=== PATIENT | male | born 1950 | race Caucasian/White ===

== ENCOUNTER 2018-05-02 09:49 | Emergency (ER) | payer MEDICAID, SELFPAY ==
[2018-05-02] VITALS (9 sets, daily range): BP systolic 81–103; BP diastolic 53–69; PULSE 90–102; RESP 16–24; TEMP 36.6–36.7; O2SAT 90–94; BMI 43.6
--- NOTE | 2018-05-02 09:53 | RAD_ITS ---
STUDY: X-RAY CHEST REASON FOR EXAM: Male, 68 years old. Weakness and dyspnea. TECHNIQUE: AP and lateral views of the chest. COMPARISON: None. FINDINGS: EKG electrodes are seen. There is evidence of vascular congestion and CHF. Blunting of both costophrenic angles posteriorly. There is moderate cardiac enlargement. Normal mediastinum and kristin. Normal visualized pulmonary arteries. There is atherosclerotic tortuosity of the aortic arch and descending thoracic aorta. There are diffuse degenerative changes of the visualized thoracic spine. Normal visualized ribs, clavicles, and shoulders. There is no demonstrated abnormality of the visualized soft tissue structures of the upper abdomen. RAD/Chest PA and Lateral IMPRESSION: Cardiomegaly and CHF. Electronically Signed: Chad Humphrey MD at 11:12 EST Tel [phone], Service support ,
[2018-05-02 10:10] LABS: Absolute Neutrophil Count 11.4 X10^3/uL (2.0-7.7); Basophil# 0.02 X10^3/uL; Basophil% 0.1 % (0-1); Differential Indicated SCAN CRITERIA MET; Eosinophil# 0.04 X10^3/uL; Eosinophils% 0.3 % (0-5); Hematocrit 31.8 % (40-54); Hemoglobin 9.2 g/dl (13.0-16.5); Mean Corp Hgb Conc 28.9 g/gl (32-36); Mean Corpuscular Hgb 29.1 pg (27.0-32.0); Mean Corpuscular Volume 100.6 fL (80-94); Mean Platelet Vol. 10.5 fl (6.2-12.0); Monocyte# 1.44 X10^3/uL; Monocyte% 10.3 % (0-10); Neutrophil % 81.4 % (47-70); POSITIVE COUNT YES; POSITIVE DIFFERENTIAL NO; POSITIVE MORPHOLOGY YES; Platelet Count 216 K/mm3 (150-450); RBC Distribution Width CV 22.8 % (11.6-14.6); RBC Distribution Width SD 83.9 fl (35.1-43.9); Red Blood Count 3.16 M/mm3 (4.6-6.2)
[2018-05-02 10:11] LABS: NRBC Flagged by Analyzer 0.7 % (0-5)
[2018-05-02 10:24] LABS: Anion Gap 5 (5-15); BUN 13 mg/dL (7-18); BUN/Creat Ratio 11.1 RATIO (10-20); Calcium,Total 8.4 mg/dL (8.5-10.1); Chloride 105 mmol/L (98-107); Creatinine, Serum 1.17 mg/dL (0.70-1.30); EST Glomerular Filtration Rate 66 mL/min (>60); Est Glom Filt Rate - Afr Amer 80 mL/min (>60); Glucose 183 mg/dL (74-106); Potassium 4.3 mmol/L (3.5-5.1); Sodium Level 142 mmol/L (136-145)
[2018-05-02 10:38] LABS: Platelet Estimate ADEQUATE (ADEQ)
[2018-05-02 10:39] LABS: Anisocytosis 1+; Differential Comment SCANNED; Hypochromasia 2+; Macrocytosis 1+; Polychromasia 1+
[2018-05-02] MEDS: Furosemide 20 MG/2 ML VIAL IV (10:58)
--- NOTE | 2018-05-02 11:13 | ED.VISSUMM ---
- ER Visit Summary Date of Service: 05/02/18 Chief Complaint: Low pulse ox History of Present Illness: The patient is a 68 M who is a poor informant and has been probated by the court because he is not capable of making his own decisions. [facility]work [facility] patient. After reviewing paperwork I was able to determine the patient is DNR Comfort [facility] only. This was not discussed with the patient since he has been probated by the court and has been deemed not to have the capacity to make a medical decision. His complaint is cough. He is not capable of elaborating on anything or tell me specifically quality, quantity duration etc. Physical Examination: Vital signs noted. Blood pressure 102/57 heart rate 102 with a respiratory of 20 and saturation on 3 L of 94%. His pulse ox may have been inaccurate since he has black fingernail [place] islander. Patient has abnormal respiratory sounds which are upper airway. There is no swelling of his lips, tongue posterior pharynx or neck. Pupils are equal round reactive paradoxic muscle intact. Sclera is anicteric. Neck is supple. Heart is irregular and rapid. There is transmission of upper airway sounds to the lower lung dave on inspiration. There is no wheezing on expiration. Abdomen is prominent soft nontender. There is mild edema both legs. He is alert, but he is not oriented. He moves all extremities. He withdraws to Babinski testing. DTRs are symmetric. Test Results: EKG was not obtained since he is DNR Comfort Care only. Chest x-ray reveals a rotated film with probable cardiomegaly and congestive heart failure. White count is slightly elevated 14.0 thousand with 81% segs and no bands and 5% lymphs. Hemoglobin is 9.2. Glucose is slightly elevated. Emergency Department Course and Treatment: To evaluate patient's hypoxia a chest x-ray and blood work was obtained. An EKG troponin such was not obtained since he is DNR Comfort Care only. Treatment Plan: He received 20 mg of Lasix IV push. He was discharged with prescription for Lasix and return to nursing facility since he has a signed valid DNR Comfort Care order. Disposition: Return to nursing facility with prescription for Lasix Impression: 1. Congestive heart failure 2. Chronic respiratory failure with hypercapnia and hypoxia 3. Unspecified anemia 4. Hyperglycemia 5. Renal insufficiency This note was generated with Anewsation software. It may contain incorrect words, spelling, and punctuation that were not noted in review of the chart prior to signing ED Disposition - Plan for ED Patient: Disposition: Home or Assisted Living Chief Complaint: Shortness of Breath Instructions: ED CHF General Prescriptions: Furosemide [Lasix] 20 mg PO DAILY #30 tab Referrals: Marc Becerra [Primary Care Provider] - 5-7 Days
--- NOTE | 2018-05-02 11:19 | ED.DCSUM_ITS ---
- ER Visit Summary Date of Service: 05/02/18 Chief Complaint: Low pulse ox History of Present Illness: The patient is a 68 M who is a poor informant and has been probated by the court because he is not capable of making his own decisions. Paperwork from [facility] accompany patient. After reviewing florencia jimenez I was able to determine the patient is DNR Comfort Care only. This was not discussed with the patient since he has been probated by the court and has been deemed not to have the capacity to make a medical decision. His complaint is cough. He is not capable of elaborating on anything or tell me specifically quality, quantity duration etc. Physical Examination: Vital signs noted. Blood pressure 102/57 heart rate 102 with a respiratory of 20 and saturation on 3 L of 94%. His pulse ox may have been inaccurate since he has black fingernail sao tomean. Patient has abnormal respiratory sounds which are upper airway. There is no swelling of his lips, tongue posterior pharynx or neck. Pupils are equal round reactive paradoxic muscle intact. Sclera is anicteric. Neck is supple. Heart is irregular and rapid. There is transmission of upper airway sounds to the lower lung dave on inspiration. There is no wheezing on expiration. Abdomen is prominent soft nontender. There is mild edema both legs. He is alert, but he is not oriented. He moves all extremities. He withdraws to Babinski testing. DTRs are symmetric. Test Results: EKG was not obtained since he is DNR Comfort Care only. Chest x- ray reveals a rotated film with probable cardiomegaly and congestive heart failure. White count is slightly elevated 14.0 thousand with 81% segs and no bands and 5% lymphs. Hemoglobin is 9.2. Glucose is slightly elevated. Emergency Department Course and Treatment: To evaluate patient's hypoxia a chest x-ray and blood work was obtained. An EKG troponin such was not obtained since he is DNR Comfort Care only. Treatment Plan: He received 20 mg of Lasix IV push. He was discharged with prescription for Lasix and return to nursing facility since he has a signed valid DNR Comfort Care order. Disposition: Return to nursing facility with prescription for Lasix Impression: 1. Congestive heart failure 2. Chronic respiratory failure with hypercapnia and hypoxia 3. Unspecified anemia 4. Hyperglycemia 5. Renal insufficiency This note was generated with Flixel Photosation software. It may contain incorrect words, spelling, and punctuation that were not noted in review of the chart prior to signing ED Disposition - Plan for ED Patient: Disposition: Home or Assisted Living Chief Complaint: Shortness of Breath Instructions: ED CHF General Prescriptions: Furosemide [Lasix] 20 mg PO DAILY #30 tab Referrals: Marc Becerra [Primary Care Provider] - 5-7 Days
--- NOTE | 2018-05-02 11:27 | NURSING ---
CALLED ARJ BURROUG[facility], COMING FROM [place]
[2018-05-03 10:37] LABS: Pathologist Review Reviewed
--- OUTSIDE RECORDS SUMMARY | 2018-07-04 20:59 | XMS RPT_ITS ---
:1950 Author Organization [facility] Care Team Providers Name [facility], [facility] Attending Unavailable Dg Stewart Attending Unavailable Marc Becerra Primary Care Unavailable Neptali Becerra Attending Unavailable PROBLEMS PROBLEMS No Problem Records FoundPROCEDURES PROCEDURES No Procedure Records FoundRESULTS RESULTS EMERGENCY DEPARTMENT Observed: 05/02/2018 Status: F Source: [place] SUMMARY 11:20 AM [facility] REPOSITORY [facility] Medical Records Department [address] [place] [address] Emergency Department Summary 05/02/18 1113 MR#: [id number] Acct: [id number] Name: DEANDRA BONNER Rep #: [id number] : 1950 68 From: Dg Stewart MD PCP: Marc Becerra Status: REG ER - ER Visit Summary Date of Service: 05/02/18 Chief Complaint: Low pulse ox History of Present Illness: The patient is a 68 M who is a poor informant and has been probated by the court because he is not capable of making his own decisions. Paperwork from [facility] accompany patient. After reviewing paperwork I was able to determine the patient is DNR Comfort Care only. This was not discussed with the patient since he has been probated by the court and has been deemed not to have the capacity to make a medical decision. His complaint is cough. He is not capable of elaborating on anything or tell me specifically quality, quantity duration etc. Physical Examination: Vital signs noted. Blood pressure 102/57 heart rate 102 with a respiratory of 20 and saturation on 3 L of 94%. His pulse ox may have been inaccurate since he has black fingernail greenlandic. Patient has abnormal respiratory sounds which are upper airway. There is no swelling of his lips, tongue posterior pharynx or neck. Pupils are equal round reactive paradoxic muscle intact. Sclera is anicteric. Neck is supple. Heart is irregular and rapid. There is transmission of upper airway sounds to the lower lung dave on inspiration. There is no wheezing on expiration. Abdomen is prominent soft nontender. There is mild edema both legs. He is alert, but he is not oriented. He moves all extremities. He withdraws to Babinski testing. DTRs are symmetric. Test Results: EKG was not obtained since he is DNR Comfort Care only. Chest x-ray reveals a rotated film with probable cardiomegaly and congestive heart failure. White count is slightly elevated 14.0 thousand with 81% segs and no bands and 5% lymphs. Hemoglobin is 9.2. Glucose is slightly elevated. Emergency Department Course and Treatment: To evaluate patient's hypoxia a chest x-ray and blood work was obtained. An EKG troponin such was not obtained since he is DNR Comfort Care only. Treatment Plan: He received 20 mg of Lasix IV push. He was discharged with prescription for Lasix and return to nursing facility since he has a signed valid DNR Comfort Care order. Disposition: Return to nursing facility with prescription for Lasix Impression: 1. Congestive heart failure 2. Chronic respiratory failure with hypercapnia and hypoxia 3. Unspecified anemia 4. Hyperglycemia 5. Renal insufficiency This note was generated with Pyrolia dictation software. It may contain incorrect words, spelling, and punctuation that were not noted in review of the chart prior to signing ED Disposition - Plan for ED Patient: Disposition: Home or Assisted Living Chief Complaint: Shortness of Breath Instructions: ED CHF General Prescriptions: Furosemide [Lasix] 20 mg PO DAILY #30 tab Referrals: Marc Becerra [Primary Care Provider] - 5-7 Days What to do if you have Problems For any increased pain, shortness of breath, bleeding, nausea or vomiting, chest pain, or any unexpected problems, contact your Primary Care Provider. Call [facility] ([phone]) or report to the closest Emergency Room. Call 911 if necessary. 05/02/18 1120 <Electronically signed by Dg Stewart MD> Date Dg Stewart MD Cosigner Signature (If Indicated): Date CC: Marc Becerra CHEST PA AND LATERAL Observed: 05/02/2018 Status: F Source: [place] 9:55 AM [facility] REPOSIT[facility] Imaging Services [address] [place] [address] Chest PA and Lateral MR#: [id number] Acct: [id number] Name: DEANDRA BONNER Rep #: [id number] : 1950 M 68 From: Chad Humphrey MD PCP: Marc Becerra Status: REG ER Study: Chest PA and Lateral Date of Exam: 05/02/18 Exam# [id number] Ordering Dr: Dg Stewart MD STUDY: X-RAY CHEST REASON FOR EXAM: Male, 68 years old. Weakness and dyspnea. TECHNIQUE: AP and lateral views of the chest. COMPARISON: None. FINDINGS: EKG electrodes are seen. There is evidence of vascular congestion and CHF. Blunting of both costophrenic angles posteriorly. There is moderate cardiac enlargement. Normal mediastinum and kristin. Normal visualized pulmonary arteries. There is atherosclerotic tortuosity of the aortic arch and descending thoracic aorta. There are diffuse degenerative changes of the visualized thoracic spine. Normal visualized ribs, clavicles, and shoulders. There is no demonstrated abnormality of the visualized soft tissue structures of the upper abdomen. RAD/Chest PA and Lateral IMPRESSION: Cardiomegaly and CHF. Electronically Signed: Chad Humphrey MD at 11:12 EST Tel [phone], Service support , CC: Marc Becerra; Dg Stewart MD [employer]: Signed CBC W/DIFF, AUTOMATED Collected: 05/02/2018 Status: C Source: [place] 9:53 AM [facility] REPOSITORY TYPE CODE TESTS RESULT OUT OF RANGE REFERENCE UNITS LAB L100.1200 4.6-6.2 M/mm3 Low RBC 3.16 LAB L100.1300 13.0-16.5 g/dl Low HGB 9.2 LAB L100.1400 40-54 % Low HCT 31.8 LAB L100.1500 80-94 fL High MCV 100.6 LAB L100.1600 27.0-32.0 pg Normal MCH 29.1 LAB L100.1700 32-36 g/gl Low MCHC 28.9 LAB L100.1810 11.6-14.6 % High RDW CV 22.8 LAB L100.1820 35.1-43.9 fl High RDW SD 83.9 LAB L100.1900 150-450 K/mm3 Normal PLT 216 LAB L100.2000 6.2-12.0 fl Normal MPV 10.5 LAB L100.2100 47-70 % High NEUT% 81.4 LAB L100.2200 19-41 % Low LY% 5.0 LAB L100.2300 0-10 % High MONO% 10.3 LAB L100.2400 0-5 % Normal EO% 0.3 LAB L100.2500 0-1 % Normal BASO% 0.1 LAB L100.2550 0.0-0.9 % High IM GRAN % 2.900 Result Comment: IG% - Immature Granulocytes (promyelocytes, myelocytes and metamyelocytes) > 1% indicates that a LEFT SHIFT is Present. LAB L100.2620 2.0-7.7 X10 3/uL High Absolute Neut 11.4 LAB L100.2720 0.83-4.51 X10 3/ul Low Absolute Lymph 0.70 LAB L100.1100 4.4-11.0 K/mm3 High CORRECTED WBC 14.0 LAB L100.4500 SMEAR Normal COMMENT SCANNED Result Comment: RARE BANDS SEEN LAB L100.5500 ADEQ PLT EST Normal ADEQUATE LAB L100.7300 ANISO 1+ Normal LAB L100.7500 POLYCHROMASIA 1+ Normal LAB L100.7600 HYPOCHROMASIA 2+ Normal LAB L100.7800 MACROCYTE 1+ Normal LAB L100.9900 PATH REV Normal Reviewed Result Comment: Neutrophilic leukocytosis. Macrocytic anemia. Clinical correlation suggested. Edward Colorado D.O. 05/03/18 AMENDED REPORT 05/03/18 1037 PATH REV previously reported as: Beth rogers Performed By: #### L100.0100, L100.4425 #### [facility] [address] [place], [place], [address] NRBC PANEL Collected: 05/02/2018 Status: F Source: [place] 9:53 AM [facility] REPOSITORY TYPE CODE TESTS RESULT OUT OF RANGE REFERENCE UNITS LAB L100.4450 0-5 % Normal NRBC, FLAGGED 0.7 LAB L100.4455 0-5 10 3/uL Normal NRBC # 0.10 Performed By: #### L100.0100, L100.4425 #### [facility] [address] [place], [place], [address] BASIC METABOLIC Collected: 05/02/2018 Status: F Source: [place] PROFILE ([facility]) 9:53 AM [facility] REPOS[facility] TYPE CODE TESTS RESULT OUT OF RANGE REFERENCE UNITS LAB L501.0100 74-106 mg/dL High GLU 183 Result Comment: Fasting Glucose result greater than or equal to 126 mg/dL suggests DIABETES MELLITUS per A.D.A. criteria. Please note revised GLUCOSE reference range effective 2017. LAB L501.1000 7-18 mg/dL Normal BUN 13 LAB L501.1100 0.70-1.30 mg/dL Normal CREAT,SERUM 1.17 Result Comment: The validity of the calculated GFR AND GFRAA in patients over 70 years has not been determined. Clinical correlation is essential. LAB L501.1110 >60 mL/min Normal EST GFR 66 Result Comment: Non- GFR Calc LAB L501.1115 >60 mL/min Normal EST GFR - AA 80 Result Comment: GFR Calc LAB L501.1255 ml/min Normal Estimated CRCL 56.50 LAB L501.1300 10-20 RATIO Normal BUN/CRE 11.1 LAB L501.2200 8.5-10 mg/dL Low .1 CA 8.4 LAB L501.5300 136-14 mmol/L Normal 5 NA 142 LAB L501.5600 3.5-5. mmol/L Normal 1 K 4.3 LAB L501.5900 98-107 mmol/L Normal CL 105 LAB L501.6100 21.0-3 mmol/L Normal 2.0 CO2 32.0 LAB L501.6200 5-15 Normal GAP 5 Performed By: #### L500.2500 #### [facility] [address] [place], [address] AMMONIA Collected: 04/25/2018 Status: F Source: [place] 8:03 AM [facility] REPOSITORY TYPE CODE TESTS RESULT OUT OF RANGE REFERENCE UNITS LAB L503.5510 11-32 umol/L Normal AMMONIA 30.0 Performed By: #### L503.5510 #### [facility] [address] [place], [address] AMMONIA Collected: 01/18/2018 Status: F Source: [place] 5:04 AM [facility] REPOSIT[facility] TYPE CODE TESTS RESULT OUT OF REFERENCE UNITS RANGE LAB L503.5510 11-32 umol/L High AMMONIA 40.0 Performed By: #### L503.5510 #### [facility] [address] [place], [address] ALLERGIES ALLERGIES No Allergies Records FoundENCOUNTERS ENCOUNTERS ADMIT/DISCHARGE ACCOUNT ADMITTING ENCOUNTER LOCATION SOURCE NUMBER CLASS 05/02/2018/ [id number] Emergency [facility] 9 5 [facility] ing:ED Repository 04/25/2018 [id number] Ambulatory [facility] 3 [facility] ing:OLS.AHA Repository 01/18/2018 [id number] Ambulatory [facility] 9 [facility] ing:OLS.AHA Repository PAYERS PAYERS ENCOUNTER GUARANTOR PAYER SUBSCRIBER SOURCE 05/02/2018 DEANDRA Primary DEANDRA Duryea [id number] N Insurance:MEDICAIDPol JAEGERDOB: [facility] Number: [id number] [id number] Repository [address]Tss: [phone]) Date:2018-05-02 [id number] () 05/02/2018 Secondary NOT GIVENUNK [place] Insurance:SELF PAY [facility] Number: Effective Repository Date:2018-05-02 04/25/2018 DEANDRA Primary NOT GIVENUNK Duryea [id number] N Insurance:SELF PAY [place] Number: Effective Repository [id number]: [phone]) Date:2018-04-25 [phone] () 01/18/2018 Deandra Primary NOT GIVENUNK [place] [id number] N Insurance:SELF PAY [place] Number: Effective Repository [id number]: ([phone]) Date:2018-01-18 [phone] ()
== END 2018-05-02 12:06 | disposition home or self-care (01) ==
PROVIDERS: Emergency Provider Emergency Medicine; Family Provider Family Medicine; PCP Family Medicine
DX: I50.9 Heart failure, unspecified (principal); J96.12 Chronic respiratory failure with hypercapnia; J96.11 Chronic respiratory failure with hypoxia; D64.9 Anemia, unspecified; R73.9 Hyperglycemia, unspecified; N28.9 Disorder of kidney and ureter, unspecified; Z66 Do not resuscitate; E66.9 Obesity, unspecified; Z68.41 Body mass index [BMI] 40.0-44.9, adult; I25.10 Atherosclerotic heart disease of native coronary artery without angina pectoris; Z79.82 Long term (current) use of aspirin; Z79.899 Other long term (current) drug therapy
CPT/HCPCS: 71046; 80048; 85025; 96374; 99285; J1940